=== PATIENT | male | born 1995 | race African-American/Black ===

== ENCOUNTER 2016-08-09 09:57 | Emergency (ER) | payer SELFPAY ==
[~2016-08-09] VITALS: Ht 190.5 cm; Wt 94.0 kg
[~2016-08-09 09:57] MED LIST: ZOFR4TAB3 SL
[2016-08-09 09:58] VITALS: BP 149/92; PULSE 92; RESP 20; TEMP 98.6; O2SAT 100
[2016-08-09] MEDS ORDERED: SODIUM CHLOR 0.9% 1000 ML INJ 1,000 ML IV SCH (10:13)
[2016-08-09] MEDS ORDERED: SODIUM CHLORIDE 0.9% FLUSH 10 ML FLUSH IV FLUSH PRN (10:15)
[2016-08-09] MEDS ORDERED: KETOROLAC TROMETHAMINE 30 MG/ML (IVP) VIAL IVP ONE (10:15)
[2016-08-09] MEDS ORDERED: ONDANSETRON HCL 4 MG/2 ML VIAL IVP ONE (10:15)
[2016-08-09 10:29] VITALS: O2SAT 99
[2016-08-09 10:33] LABS: AUTOMATED NEUTROPHIL # 8.7 TH/MM3 (1.8-7.7); BASOPHIL % 0.3 % (0.0-2.0); EOSINOPHIL % 0.1 % (0.0-4.0); HEMATOCRIT 45.7 % (39.0-51.0); HEMO FLAGS DIFF FINAL; LYMPH % 13.8 % (9.0-44.0); LYMPHOCYTE # 1.5 TH/MM3 (1.0-4.8); MEAN CORPUSCULAR HEMOGLOBIN 29.7 PG (27.0-34.0); MEAN CORPUSCULAR HGB CONC 34.6 % (32.0-36.0); MONO % 4.8 % (0.0-8.0); PLATELET COUNT 298 TH/MM3 (150-450); RED BLOOD COUNT 5.32 MIL/MM3 (4.50-5.90); RED CELL DISTRIBUTION WIDTH 13.2 % (11.6-17.2); WHITE BLOOD COUNT 10.7 TH/MM3 (4.0-11.0)
[2016-08-09 10:55] LABS: ANION GAP 10 MEQ/L (5-15); AST (GOT) 40 U/L (15-37); BICARBONATE 24.9 MEQ/L (21.0-32.0); BLOOD UREA NITROGEN 13 MG/DL (7-18); CHLORIDE 100 MEQ/L (98-107); GLOMERULAR FILTRATION RATE 76 ML/MIN (>89); POTASSIUM 4.1 MEQ/L (3.5-5.1); SODIUM (NA) 135 MEQ/L (136-145)
[2016-08-09 10:56] LABS: ALT (GPT) 35 U/L (12-78)
[2016-08-09 10:59] LABS: ALKALINE PHOSPHATASE 75 U/L (45-117); TOTAL BILIRUBIN ADULT 0.4 MG/DL (0.2-1.0)
[2016-08-09] MEDS ORDERED: PROM25TA10 PO (10:59)
--- NOTE | 2016-08-09 11:00 | PD ---
HPI Chief Complaint: Abdominal Pain Time Seen by Provider: 10:11 Travel History International Travel<30 days: No Contact w/Intl Traveler<30days: No Traveled to known affect area: No History of Present Illness HPI Healthy 20-year-old male here with complaint of epigastric abdominal pain, nausea and vomiting. Patient was in [place] over the weekend visiting family. He got ill there yesterday evening with intractable nausea and vomiting. He was able to get home, and was hopeful that when he woke up this morning he would feel better but he has not. He states that the pain is somewhat burning in nature. No hematemesis. Patient has had cramping in the calves this morning. When he saw his strainer tender, history and was concern for possible dehydration and prompted him to come to the emergency department for evaluation. Patient denies eating any raw, undercooked meat seafood, sushi/etc. PFSH Past Medical History Medical History: Denies Significant Hx Past Surgical History Other Surgery: Yes Social History Alcohol Use: Yes (occasionally) Tobacco Use: No Substance Use: No Allergies-Medications (Allergen,Severity, Reaction): Coded Allergies: No Known Allergies (Unverified , 09/17/15) Reported Meds & Prescriptions Reported Meds & Active Scripts Active Phenergan (Promethazine HCl) 25 Mg Tablet 25 Mg PO Q6H PRN Review of Systems Except as stated in HPI: all other systems reviewed are Neg Physical Exam Narrative GENERAL: Well-appearing male in no acute distress SKIN: Focused skin assessment warm/dry. HEAD: Normocephalic. EYES: No scleral icterus. No injection or drainage. ENT: Mucous membranes pink and moist. NECK: Supple CARDIOVASCULAR: Regular rate and rhythm. RESPIRATORY: No accessory muscle use. GASTROINTESTINAL: Abdomen soft, minimal periumbilical and epigastric abdominal tenderness to palpation without rebound or guarding. Benign abdominal exam. MUSCULOSKELETAL: Normal gait NEUROLOGICAL: Awake and alert. Normal speech. PSYCHIATRIC: Appropriate mood and affect; insight and judgment normal. Data Data Last Documented VS Vital Signs Date Time Temp Pulse Resp B/P Pulse Ox O2 Delivery O2 Flow Rate FiO2 08/09/16 10:29 99 Room Air 08/09/16 10:12 18 08/09/16 09:58 98.6 92 149/92 Orders Complete Blood Count With Diff (08/09/16 10:13) Comprehensive Metabolic Panel (08/09/16 10:13) Lipase (08/09/16 10:13) Iv Access Insert/Monitor (08/09/16 10:13) Oximetry (08/09/16 10:13) Ondansetron Inj (Zofran Inj) (08/09/16 10:15) Sodium Chlor 0.9% 1000 Ml Inj (Ns 1000 M (08/09/16 10:13) Sodium Chloride 0.9% Flush (Ns Flush) (08/09/16 10:15) Ketorolac Inj (Toradol Inj) (08/09/16 10:15) Labs Laboratory Tests Test 08/09/16 10:20 White Blood Count 10.7 TH/MM3 Red Blood Count 5.32 MIL/MM3 Hemoglobin 15.8 GM/DL Hematocrit 45.7 % Mean Corpuscular Volume 86.0 FL Mean Corpuscular Hemoglobin 29.7 PG Mean Corpuscular Hemoglobin 34.6 % Concent Red Cell Distribution Width 13.2 % Platelet Count 298 TH/MM3 Mean Platelet Volume 8.7 FL Neutrophils (%) (Auto) 81.0 % Lymphocytes (%) (Auto) 13.8 % Monocytes (%) (Auto) 4.8 % Eosinophils (%) (Auto) 0.1 % Basophils (%) (Auto) 0.3 % Neutrophils # (Auto) 8.7 TH/MM3 Lymphocytes # (Auto) 1.5 TH/MM3 Monocytes # (Auto) 0.5 TH/MM3 Eosinophils # (Auto) 0.0 TH/MM3 Basophils # (Auto) 0.0 TH/MM3 CBC Comment DIFF FINAL Differential Comment Sodium Level 135 MEQ/L Potassium Level 4.1 MEQ/L Chloride Level 100 MEQ/L Carbon Dioxide Level 24.9 MEQ/L Anion Gap 10 MEQ/L Blood Urea Nitrogen 13 MG/DL Creatinine 1.43 MG/DL Estimat Glomerular Filtration 76 ML/MIN Rate Random Glucose 131 MG/DL Calcium Level 10.5 MG/DL Total Bilirubin 0.4 MG/DL Aspartate Amino Transf 40 U/L (AST/SGOT) Alanine Aminotransferase 35 U/L (ALT/SGPT) Alkaline Phosphatase 75 U/L Total Protein 9.6 GM/DL Albumin 4.7 GM/DL Lipase 83 U/L [facility] Medical Decision Making Medical Screen Exam Complete: Yes Emergency Medical Condition: Yes Medical Record Reviewed: Yes Differential Diagnosis 20-year-old male here with 1 day of epigastric and periumbilical abdominal pain with nausea and vomiting. Differential includes gastritis, peptic ulcer disease , pancreatitis, hepatobiliary pathology, food poisoning and less likely peritoneal pathology given her overall benign abdominal exam. Narrative Course Patient placed on monitor, IV established and blood obtained. Given 1 L normal saline bolus, 30 mg Toradol, 4 mg Zofran. CBC, CMP, lipase obtained and notable for creatinine 1.43. Patient had been given 1 L normal saline bolus as above. Patient able to tolerate oral challenge and will be discharged home. Diagnosis Primary Impression: Gastritis Qualified Code: K29.00 - Other acute gastritis without hemorrhage Referrals: [facility] as needed This is a clinic that accepts patients without health insurance Additional Instructions: Phenergan as needed for nausea, vomiting. Med/Other Pt SpecificInfo: Prescription(s) given Scripts Promethazine (Phenergan)25 Mg [id number] Mg PO Q6H PRN (NAUSEA OR VOMITING) #10 TAB Ref 0 Prov:Cinthia Mancia MD 08/09/16 Disposition: DISCHARGE HOME Condition: Stable Cinthia Mancia MD Aug 09, 2016 10:59
== END 2016-08-09 11:37 | disposition home or self-care (01) ==
LOC: NEPD 09:57
DX: K29.70 Gastritis, unspecified, without bleeding (principal)
CPT/HCPCS: 80053; 83690; 85025; 96374; 96375; 99284; J1885; J2405; J7030